=== PATIENT | male | born 1940 | race Caucasian/White ===

== ENCOUNTER 2021-02-05 18:26 | Inpatient (IN) | payer MEDICARE ==
[~2021-02-05] VITALS: Ht 180.3 cm; Wt 96.7 kg
[2021-02-05] MEDS ORDERED: dexameTHASONE 20MG/5ML VIAL (J1100 PER 1MG) IV ONE (19:05)
[2021-02-05] MEDS ORDERED: IPRATROPIUM 0.5MG/ALBUTEROL 2.5MG INH SOL UD 3ML (DUONEB) NEB ONE (19:05)
[2021-02-05] MEDS ORDERED: ACETAMINOPHEN 500 MG TAB PO ONE (19:05)
[2021-02-05 19:29] LABS: BASO % 0.2 % (0.0-1.0); HEMOGLOBIN 15.4 g/dl (13.5-17.5); LYMPH # 0.5 10^3/uL (1.5-5.0); LYMPH % 2.5 % (24.0-44.0); MEAN CORPUSCULAR HEMOGLOBIN 27.5 pg (27.0-33.0); MEAN CORPUSCULAR HGB CONC 32.1 g/dl (32.0-36.5); MEAN CORPUSCULAR VOLUME 85.9 fl (80.0-96.0); MONO # 1.9 10^3/uL (0.0-0.8); MONO % 9.1 % (2.0-8.0); NEUTROPHILS # 18.1 10^3/uL (1.5-8.5); NEUTROPHILS % 87.6 % (36.0-66.0); PLATELET COUNT, AUTOMATED 271 10^3/uL (150-450); RED BLOOD COUNT 5.59 10^6/uL (4.30-6.10); WHITE BLOOD COUNT 20.7 10^3/uL (4.0-10.0)
[2021-02-05] MEDS ORDERED: cefTRIAXone SOD 1 GM in D5W MINI-BAG PLUS 50 ML IV ONE (19:40)
[2021-02-05] MEDS ORDERED: AZITHROMYCIN INJ 500 MG, VIAL MATE ADAPTER 1 EACH in NS 250 ML IV ONE (19:40)
[2021-02-05 19:58] LABS: ALBUMIN 3.2 GM/DL (3.2-5.2); ALT/SGPT 22 U/L (12-78); BILIRUBIN,DIRECT 0.4 MG/DL (0.0-0.2); BILIRUBIN,TOTAL 1.2 MG/DL (0.2-1.0); BLOOD UREA NITROGEN 18 MG/DL (7-18); CALCIUM LEVEL 8.3 MG/DL (8.8-10.2); CARBON DIOXIDE LEVEL 29 MEQ/L (21-32); CHLORIDE LEVEL 101 MEQ/L (98-107); CK-MB VALUE MASS < 1.0 NG/ML (<3.6); CPK CREATINE PHOSPHOKINASE 48 U/L (39-308); CREATININE FOR GFR 1.16 MG/DL (0.70-1.30); GLOMERULAR FILTRATION RATE > 60.0 (>35); GLUCOSE, FASTING 153 MG/DL (70-100); MB/CK RELATIVE INDEX 2.08 (< OR =4); NT-PRO BNP 184 PG/ML (<450); POTASSIUM SERUM 4.2 MEQ/L (3.5-5.1); SODIUM LEVEL 135 MEQ/L (136-145); TOTAL PROTEIN 6.8 GM/DL (6.4-8.2); TROPONIN I < 0.02 NG/ML (< 0.10)
[2021-02-05] MEDS ORDERED: LORA-930 PO (20:24)
[2021-02-05] MEDS ORDERED: IPRA0.00 NEB (20:24)
[2021-02-05] MEDS ORDERED: MONT10TA10 PO (20:24)
[2021-02-05] MEDS ORDERED: SIMV20TA22 PO (20:24)
[2021-02-05] MEDS ORDERED: ALBU8.5H INH (20:24)
[2021-02-05] MEDS ORDERED: COMBAER6 INH (20:24)
[2021-02-05 20:27] LABS: VENOUS BASE EXCESS 0.7 (-2.0-2.0); VENOUS HCO3 25.5 MEQ/L (23.0-27.0); VENOUS O2 SATURATION 92.7 % (60.0-80.0); VENOUS PARTIAL PRESSURE CO2 41.8 mmHg (38.0-50.0); VENOUS PARTIAL PRESSURE O2 63.6 mmHg (30.0-50.0); VENOUS PH 7.404 UNITS (7.330-7.430); VENOUS STANDARD HCO3 24.9 MEQ/L; VENOUS TOTAL CO2 26.8 MEQ/L (24.0-28.0)
[2021-02-05] MEDS ORDERED: HOME MED LIST COMPLETE! XX SCH (20:30)
--- NOTE | 2021-02-05 22:34 | REPVR ---
PROCEDURE INFORMATION: Exam: XR Chest Exam date and time: 02/05/2021 7:21 PM Age: 80 years old Clinical indication: Cough and dyspnea; Additional info: Dyspnea/cough TECHNIQUE: Imaging protocol: XR of the chest. Views: 1 view. COMPARISON: No relevant prior studies available. FINDINGS: Lungs: Minimal atelectasis at bilateral lung bases. Pleural spaces: Unremarkable. No pleural effusion. No pneumothorax. Heart/Mediastinum: Unremarkable. No cardiomegaly. Bones/joints: Unremarkable. IMPRESSION: Minimal atelectasis at bilateral lung bases. Electronically signed by: Tito Gaston On 02/05/2021 22:33:42 PM
[2021-02-05] MEDS ORDERED: SODIUM CHLORIDE 0.9% 1000ML IV STA (23:29)
[2021-02-05] MEDS ORDERED: ALBUTEROL SULFATE 2.5 MG/0.5 ML INH NEB SOLN NEB PRN (23:30)
[2021-02-05] MEDS ORDERED: ACETAMINOPHEN TAB 650MG DOSE (2X325MG) PO PRN (23:30)
[2021-02-05] MEDS ORDERED: MAALOX 30 ML SUSP *UDC PO PRN (23:30)
[2021-02-05] MEDS ORDERED: MOM 30ML SUSPENSION UDC PO PRN (23:30)
--- NOTE | 2021-02-05 23:36 | HPEPDOC ---
[facility] Medical History & Physical Date of Admission Feb 05, 2021 Date of Service: Feb 05, 2021 Attending Physician: JUAN ANTONIO WARD MD History and Physical TIME OF SERVICE: 11:57pm CHIEF COMPLAINT: I couldnt breathe HISTORY OF PRESENT ILLNESS: , an 80 yr old M, presented to the hospital w the chief c/o that he couldnt breathe. His shortness of breath became progressively worse over the last few days despite using his inhalers and supplemental O2 more frequently. He has also had a cough productive of white sputum (that is occurs more frequently than his chronic COPD related cough), fever, headache, chills, & sweating; he denies having chest pain, n/v/d or rash. He has been diagnosed w PNA about 3 or 4 times in the past but feels like his symptoms today are different from his typical symptoms due to PNA bc he doesnt have muscle aches. 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 ALLERGIES: Please see below. HOME MEDICATIONS: Please see below. PHYSICAL EXAMINATION: Vital Signs Date Time Temp Pulse Resp B/P (MAP) Pulse Ox O2 Delivery O2 Flow Rate FiO2 02/05/21 18:27 100.4 124 20 143/74 (97) 90 Nasal Cannula 1.0 GENERAL APPEARANCE: well-nourished and developed/ NAD HEENT: EOMI / MMM&P / NC in place CARDIOVASCULAR: RRR/NMRG / pulse is not bounding / there is no BLE edma LUNGS: he is using accessory muscles / he is able to speak full sentences w/o stopping to take a breath / he coughs occasionally / air entry is equal bilaterally / breath sounds are diminished bilaterally / there is no dullness to percussion ABDOMEN: contour convex MUSCULOSKELETAL: NCAT / SAVITA x 4 extremities INTEGUMENT: he is flushed and diaphoretic NEUROLOGICAL: CN 2-12 grossly intact / speech not dysarthric PSYCHIATRIC: A&O / able to understand and follow all commands LABORATORY DATA: IMAGING: Chest xray IMPRESSION: Minimal atelectasis at bilateral lung bases. MICROBIOLOGY: Respiratory panel negative ASSESSMENT: is an 80 yr old w a hx of COPD & DLP who is admitted for Sepsis of unclear source, and acute COPD. PLAN: 1 Sepsis of unclear source vs SIRS Clinically he appears toxic and has several findings c/w SIRS Plan: admit to pCU / telemetry / Zosyn and vancomycin pending chest CT & pancx results / IVF/ Acetaminophen PRN for fever / target MAP at of least 65 to 70 / f/u Is and Os with target UOP of at least 0.5 ml/kg/H / f/u FSBS w target serum glucose 140-180 while acutely ill 2 Acute COPD Plan: supplemental O2 / continuous pulse oximetry / aspiration precautions / COPD diet / f/u sputum cx / DuoNeb Q6H, Albuterol Q1HP, Prednisone 3 Gilbert Syndrome Isolated hyperbilirubinemia DVT px w Lovenox Dispo: home after at least 2 midnights stay Home Medications Scheduled Loratadine (Loratadine) 10 Mg Tablet, 10 MG PO QHS Montelukast Sodium (Montelukast Sodium) 10 Mg Tablet, 10 MG PO QHS Simvastatin (Simvastatin) 20 Mg Tablet, 20 MG PO QHS Scheduled PRN Albuterol Sulfate (Albuterol Sulfate Hfa) 8.5 Gm Hfa.aer.ad, 2 PUFFS INH QID PRN for SHORTNESS OF BREATH Ipratropium/Albuterol Sulfate (Combivent Respimat 20-100 Mcg) 4 Gm Mist.inhal, 2 PUFFS INH QID PRN for SHORTNESS OF BREATH Ipratropium/Albuterol Sulfate (Iprat-Albut 0.5-3(2.5) mg/3 ml) 3 Ml Ampul.neb, 1 VIAL NEB QID PRN for SHORTNESS OF BREATH Allergies Coded Allergies: No Known Allergies (Unverified , 02/05/21) A-FIB/CHADSVASC A-FIB History Current/History of A-Fib/PAF?: No Current PO Anticoag Therapy: No JUAN ANTONIO WARD MD Feb 05, 2021 23:36
[2021-02-05] MEDS ORDERED: ISOVUE-370 76% 100ML VIAL As Ordered ONE (23:56)
[2021-02-06] MEDS ORDERED: VANCOMYCIN HCL 1,000 MG, VIAL MATE ADAPTER 1 EACH in NS 250 ML IV SCH ×3
[2021-02-06] MEDS: IPRATROPIUM 0.5MG/ALBUTEROL 2.5MG INH SOL UD 3ML (DUONEB) NEB SCH ×5 (01:20→19:33)
--- NOTE | 2021-02-06 02:24 | REPVR ---
PROCEDURE INFORMATION: Exam: CT Chest With Contrast; Diagnostic Exam date and time: 02/05/2021 12:19 AM Age: 80 years old Clinical indication: Pain; Chest pressure; Additional info: Dyspnea with fever TECHNIQUE: Imaging protocol: Diagnostic computed tomography of the chest with contrast. 3D rendering (Not supervised by radiologist): MIP and/or 3D reconstructed images were created by the technologist. Radiation optimization: All CT scans at this facility use at least one of these dose optimization techniques: automated exposure control; mA and/or kV adjustment per patient size (includes targeted exams where dose is matched to clinical indication); or iterative reconstruction. Contrast material: ISO 370; Contrast volume: 75 ml; Contrast route: INTRAVENOUS (IV); COMPARISON: CR PORTABLE CHEST X-RAY 02/05/2021 7:07 PM FINDINGS: Thyroid: Unremarkable. Bronchial tree: There are secretions in the right mainstem bronchus. Lungs: There are mild paraseptal emphysematous changes in the upper lobes. There is patchy consolidation in both lower lobes. No cavitary lesion is noted. 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 No pleural effusion or pneumothorax. Heart: No cardiomegaly. No pericardial effusion. There are coronary artery calcifications. Mediastinal space: No mediastinal mass, fluid collection, or pneumomediastinum. Pulmonary arteries: There is no pulmonary embolism in the main, lobar, or segmental pulmonary arteries. The timing of the contrast bolus was suboptimal for the assessment of the subsegmental pulmonary arteries, which are poorly opacified. Aorta: The thoracic aorta is intact and patent. There is no thoracic aortic aneurysm, pseudoaneurysm, penetrating atherosclerotic ulcer, intramural hematoma, or dissection. There are moderate to severe atherosclerotic calcifications. Great vessels off aortic arch: The brachiocephalic artery, imaged proximal portions of the common carotid arteries, imaged proximal portions of the vertebral arteries, and subclavian arteries are intact. No stenosis or occlusion of these vessels is noted. Lymph nodes: There is a 13 mm enlarged left hilar lymph node and a 12 mm enlarged right hilar lymph node, which may be reactive in nature. Subcentimeter mediastinal lymph nodes are present. Diaphragm: There is eventration of the right hemidiaphragm. Liver: The attenuation of the liver is lower compared to the spleen, which can be seen with fatty liver infiltration. No liver lesion is identified. The contour of the liver is smooth. No hepatomegaly is noted. Gallbladder and bile ducts: No calcified gallstones are noted. No gallbladder wall thickening, pericholecystic fluid, or pericholecystic inflammatory changes are identified. No dilation of the bile ducts is noted. Spleen: There are calcifications along the superior capsule of the spleen. The spleen is enlarged measures 14.1 cm. Adrenal glands: Normal. No adrenal mass is noted. Bones/joints: There is no fracture or dislocation. No suspicious osteolytic or osteoblastic lesion. There are bridging paraspinal osteophytes at multiple contiguous levels in the thoracic spine, which are findings compatible with diffuse idiopathic skeletal hyperostosis. There are degenerative changes in the thoracic spine. Intradiscal calcification is present at several levels. Soft tissues: Unremarkable. No soft tissue fluid collection. IMPRESSION: 1. Patchy airspace consolidation in both lower lobes, which is compatible with pneumonia. 2. 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 3. Mild paraseptal emphysematous changes in the upper lobes. 4. Splenomegaly. Electronically signed by: Jeronimo Blackman On 02/06/2021 02:23:22 AM
[2021-02-06] MEDS ORDERED: VANCOMYCIN HCL 1,000 MG, VIAL MATE ADAPTER 1 EACH in NS 250 ML IV ONE (04:00)
[2021-02-06 06:32] LABS: HEMATOCRIT 44.4 % (42.0-52.0); HEMOGLOBIN 14.2 g/dl (13.5-17.5); MEAN CORPUSCULAR VOLUME 87.4 fl (80.0-96.0); PLATELET COUNT, AUTOMATED 220 10^3/uL (150-450); RED BLOOD COUNT 5.08 10^6/uL (4.30-6.10); WHITE BLOOD COUNT 19.6 10^3/uL (4.0-10.0)
[2021-02-06 07:02] LABS: ALBUMIN 2.5 GM/DL (3.2-5.2); ALT/SGPT 22 U/L (12-78); BILIRUBIN,TOTAL 0.7 MG/DL (0.2-1.0); BLOOD UREA NITROGEN 17 MG/DL (7-18); CALCIUM LEVEL 7.4 MG/DL (8.8-10.2); CARBON DIOXIDE LEVEL 27 MEQ/L (21-32); CHLORIDE LEVEL 109 MEQ/L (98-107); GLOMERULAR FILTRATION RATE > 60.0 (>35); GLUCOSE, FASTING 189 MG/DL (70-100); MAGNESIUM LEVEL 2.2 MG/DL (1.8-2.4); POTASSIUM SERUM 4.3 MEQ/L (3.5-5.1); SODIUM LEVEL 141 MEQ/L (136-145); TOTAL PROTEIN 5.8 GM/DL (6.4-8.2)
[2021-02-06] MEDS: NS 1,000 ML IV SCH ×2 (08:01→18:40)
[2021-02-06] MEDS: ENOXAPARIN 40MG/0.4ML SYRINGE (J1650 PER 10MG) SC SCH (09:00)
[2021-02-06] MEDS: predniSONE 20 MG TAB PO SCH (09:00)
[2021-02-06] MEDS ORDERED: PIPERACILLIN/TAZOBACTAM SOD 4.5 GM in D5W MINI-BAG PLUS 50 ML IV SCH ×3 (09:00)
[2021-02-06] MEDS: MONTELUKAST 10 MG TAB PO SCH ×2 (09:40→20:02)
[2021-02-06] MEDS ORDERED: VANCOMYCIN HCL 750 MG, VIAL MATE ADAPTER 1 EACH in NS 250 ML IV ONE (10:00)
[2021-02-06] MEDS ORDERED: ALBUTEROL 90 MCG/ACT 8GM HFA INHALER INH PRN (12:10)
[2021-02-06 13:30] VITALS: BP 138/74
--- NOTE | 2021-02-06 18:15 | IPNPDOC ---
Subjective Date Seen The patient was seen on 02/06/21. Subjective Chief Complaint/HPI SUBJECTIVE: Patient seen at bedside this morning. Overnight patient had a team of 103.4 deg F. In the room he was on 4 and 1/2 L of oxygen satting at 99%. We decreased his oxygen to 3-1/2 L and he was able to sat still above 95%. We dropped his oxygen down to 2 L he was satting above 90%. During the entire interview patient did not have any acute respiratory distress or use of accessory muscles. Patient denies any chest pain, shortness of breath, nausea, vomiting, diarrhea, abdominal pain, lower extremity swelling he does state that he had one episode of chills last night however that did resolve and has not had any fever or chills since. OBJECTIVE: Vitals: Temp 97.0 deg F, Pulse 76bpm, RR 16, BP 138/74, O2 95% 2.0L NC GENERAL: The patient is a well-developed, well-nourished in no apparent distress. AAOx3 NEURO: No focal neurological deficits HEENT: Head is normocephalic and atraumatic. Extraocular muscles are intact. Pu pils are equal, round, and reactive to light and accommodation. Nares appears normal. Moist mucous membranes. PULM: Mild expiratory wheezing appreciated there is some coarse rales in bilateral lower lobes CARDIO: Normal S1, S2. no significant murmurs, gallops, rubs or clicks. Trace peripheral edema ABDOMEN: Obese, soft, nontender, and nondistended. Normal bowel sounds. No significant organomegaly appreciated. EXTREMITIES: No cyanosis, clubbing, rash, lesions. PSYCH: Appropriate mood and affect Laboratory data: See below Imaging: CXR portable 02/06/21 IMPRESSION: Minimal atelectasis at bilateral lung bases CT chest with contrast 02/06/21 IMPRESSION: 1. Patchy airspace consolidation in both lower lobes, which is compatible with pneumonia. 2. 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 3. Mild paraseptal emphysematous changes in the upper lobes. 4. Splenomegaly. Microbiology: Blood cultures pending Sputum culture pending Respiratory panel negative ASSESSMENT & PLAN: This is an 80-year-old male with a history of COPD on home oxygen (1 L), who presents to [facility] ER with chief complaint of progressive shortness of breath since Saturday and despite use of his rescue inhalers, the shortness of breath did not improve and subsequently presented to the ER for further work-up. In the ER, patient was hypoxic and required supplemental oxygen to saturate above 90%. Patient is also noted to have leukocytosis chest radiograph shows patchy airspace consolidation in both lower lobes suspicious for pneumonia. He was given 1 dose of Rocephin and Zithromax in the ER as well as a 10 mg IV Decadron and a neb treatment and hospitalist team was asked to admit the patient for further management his care. Acute COPD exacerbation He has had some increased cough with increased sputum production for the past week with increased progressive shortness of breath for the past 2 days. Patient is wheezing on auscultation. We will place on prednisone 40mg PO qd We will start DuoNebs 3ml NEB q4h and albuterol sulfate 2 puffs INH q4h prn SOB Continue to monitor his SPO2 and titrate O2 between 80% to 92%. Patient will need follow-up with pulmonary outpatient for inhaler optimization. CAP Radiograph shows findings suspicious for pneumonia patient does have some leukocytosis and a T-max overnight of 103.4. Patient was given a dose of Rocephin and Zithromax in the ER as well as a neb treatment and placed on supplemental oxygen with much improvement of his shortness of breath. He was then admitted to the floor and started on Vanco and Zosyn. MRSA PCR was ordered and not detected. Will DC his vancomycin and Zosyn and placed on Ceftin Zithromax Follow-up on blood culturescurrently pending. Hyperlipidemia Continue with home statin Work related lung injury Patient states that he has had extensive exposure to asbestos and argon. Patient will need to follow-up with his therapeutic recreation specialist outpatient for cessation of his inhalers for COPD as well as scans as necessary. History of Gilbert syndrome Total bilirubin 02/05 19:09 - 1.2(H), 02/06 05:26 - 0.7(NL) Patient will need to follow-up with PCP outpatient DVT prophylaxis: Lovenox CODE STATUS: Full Disposition pending clinical improvement. VS, I&O, 24H, Fishbone Vital Signs/I&O Vital Signs Date Time Temp Pulse Resp B/P (MAP) Pulse Ox O2 Delivery O2 Flow Rate FiO2 10/11/21 13:30 97.0 76 16 138/74 (95) 95 Nasal Cannula 2.0 I&O- Last 24 Hours up to 6 AM 02/06/21 06:00 Intake Total 305 ml Balance 305 ml Laboratory Data 24H LABS Laboratory Tests 2 02/05/21 19:09: Immature Granulocyte % (Auto) 0.6, Neutrophils (%) (Auto) 87.6H, Lymphocytes (%) (Auto) 2.5L, Monocytes (%) (Auto) 9.1H, Eosinophils (%) (Auto) 0.0, Basophils (%) (Auto) 0.2, Neutrophils # (Auto) 18.1H, Lymphocytes # (Auto) 0.5L, Monocytes # (Auto) 1.9H, Eosinophils # (Auto) 0.0, Basophils # (Auto) 0.0, Nucleated Red Blood Cells % (auto) 0.0, Blood Gas Bicarbonate Standard 24.9, Venous Blood pH 7.404, Venous Blood Partial Pressure CO2 41.8, Venous Blood Partial Pressure O2 63.6H, Venous Blood Total Carbon Dioxide 26.8, Venous Blood HCO3 25.5, Venous Blood Oxygen Saturation 92.7H, Venous Blood Base Excess 0.7, Anion Gap 5L, Glomerular Filtration Rate > 60.0, Lactic Acid Level 1.5, Calcium Level 8.3L, Total Bilirubin 1.2H, Direct Bilirubin 0.4H, Aspartate Amino Transf (AST/SGOT) 11, Alanine Aminotransferase (ALT/SGPT) 22, Alkaline Phosphatase 91, Total Creatine Kinase 48, Creatine Kinase MB < 1.0, Creatine Kinase MB Relative Index 2.08, Troponin I < 0.02, AV-Aol-J-Type Natriuretic Peptide 184, Total Protein 6.8, Albumin 3.2, Albumin/Globulin Ratio 0.9 02/06/21 05:26: Nucleated Red Blood Cells % (auto) 0.0, Anion Gap 5L, Glomerular Filtration Rate > 60.0, Calcium Level 7.4L, Total Bilirubin 0.7, Aspartate Amino Transf (AST/SGOT) 12, Alanine Aminotransferase (ALT/SGPT) 22, Alkaline Phosphatase 75, Total Protein 5.8L, Albumin 2.5#L, Albumin/Globulin Ratio 0.8, Urine Color YELLOW, Urine Appearance CLEAR, Urine pH 6.0, Urine Specific [place] 1.036, Urine Protein NEGATIVE, Urine Glucose (UA) 1+H, Urine Ketones TRACEH, Urine Blood NEGATIVE, Urine Nitrite NEGATIVE, Urine Bilirubin NEGATIVE, Urine Urobilinogen 0.2, Urine Leukocyte Esterase NEGATIVE, Urine WBC (Auto) 1, Urine RBC (Auto) 1, Urine Hyaline Casts (Auto) 0, Urine Bacteria (Auto) NEGATIVE, Urine Squamous Epithelial Cells 0, Urine Sperm (Auto) , Magnesium Level 2.2 02/06/21 11:05: Lactic Acid Level 1.7, Procalcitonin 0.32 02/06/21 13:51: Methicillin-Resist S.aureus DNA PCR NOT DETECTED 02/06/21 17:51: Bedside Glucose (Misc Panel) 178H CBC/BMP Laboratory Tests 02/05/21 19:09 02/06/21 05:26 Microbiology Microbiology 02/06/21 Gram Stain, Received Pending 02/06/21 Sputum Culture, Received Pending 02/05/21 Respiratory Virus Panel (PCR) ([facility]) - Final, Complete 02/05/21 Blood Culture, Received Pending 02/05/21 Blood Culture, Received Pending GME ATTESTATION GME ATTESTATION My faculty preceptor for this patient encounter was physically present during the encounter and was fully available. All aspects of the patient interview, examination, medical decision making process, and medical care plan development were reviewed and approved by the faculty preceptor. The faculty preceptor is aware and concurs with the plan as stated in the body of this note and will attest to such by his/her cosignature. Isaías Damon DO Feb 06, 2021 18:15
--- NOTE | 2021-02-06 19:13 | ECGEPIP ---
[facility] - ED Test Date: 2021-02-05 Pat Name: KEELEY HOWELL Department: Room: [place] [address] Gender: Male [employer]igo [employer]er: ED : 1940 Requested By: LAINE RIGGINS Order Number: [id number] Reading MD: Haydee Norris Measurements Intervals [place] Rate: 114 P: 59 CT: 140 QRS: 7 QRSD: 84 T: 46 QT: 306 QTc: 421 Interpretive Statements Sinus tachycardia Nonspecific ST abnormality Delayed R wave progression No prior ECG for comparison Electronically Signed on 02-06-2021 19:12:57 EDT by Haydee Norris
[2021-02-06] MEDS ORDERED: cefTRIAXone SOD 1 GM in D5W MINI-BAG PLUS 50 ML IV SCH (20:00)
[2021-02-06] MEDS ORDERED: AZITHROMYCIN 250MG TABLET PO SCH (21:00)
[2021-02-06 22:00] VITALS: BP 121/68
[2021-02-07 00:28] VITALS: O2SAT 91
[2021-02-07] MEDS: IPRATROPIUM 0.5MG/ALBUTEROL 2.5MG INH SOL UD 3ML (DUONEB) NEB SCH ×4 (00:37→12:28)
[2021-02-07 06:00] VITALS: BP 120/57
[2021-02-07] MEDS ORDERED: PNEUMOCOCCAL VACCINE 0.5ML SYRINGE (PNEUMOVAX 23) IM ONE (09:00)
[2021-02-07] MEDS ORDERED: methylPREDNISolone 125MG 2ML VIAL IV SCH (09:00)
[2021-02-07] MEDS: predniSONE 20 MG TAB PO SCH (09:04)
[2021-02-07 09:05] LABS: BASO % 0.1 % (0.0-1.0); HEMATOCRIT 45.6 % (42.0-52.0); HEMOGLOBIN 14.1 g/dl (13.5-17.5); LYMPH # 0.7 10^3/uL (1.5-5.0); LYMPH % 3.2 % (24.0-44.0); MEAN CORPUSCULAR HEMOGLOBIN 27.2 pg (27.0-33.0); MEAN CORPUSCULAR HGB CONC 30.9 g/dl (32.0-36.5); MONO # 1.2 10^3/uL (0.0-0.8); MONO % 5.4 % (2.0-8.0); NEUTROPHILS # 19.2 10^3/uL (1.5-8.5); NEUTROPHILS % 90.4 % (36.0-66.0); PLATELET COUNT, AUTOMATED 251 10^3/uL (150-450); RED BLOOD COUNT 5.18 10^6/uL (4.30-6.10); WHITE BLOOD COUNT 21.2 10^3/uL (4.0-10.0)
[2021-02-07] MEDS: ENOXAPARIN 40MG/0.4ML SYRINGE (J1650 PER 10MG) SC SCH (09:05)
[2021-02-07 09:26] LABS: BLOOD UREA NITROGEN 18 MG/DL (7-18); CALCIUM LEVEL 8.2 MG/DL (8.8-10.2); CARBON DIOXIDE LEVEL 29 MEQ/L (21-32); CHLORIDE LEVEL 111 MEQ/L (98-107); CREATININE FOR GFR 0.72 MG/DL (0.70-1.30); GLOMERULAR FILTRATION RATE > 60.0 (>35); GLUCOSE, FASTING 155 MG/DL (70-100); SODIUM LEVEL 143 MEQ/L (136-145)
[2021-02-07] MEDS ORDERED: PRED20TA PO (11:01)
[2021-02-07] MEDS ORDERED: DOXY-350 PO (11:01)
--- NOTE | 2021-02-07 11:05 | DS.PDOC ---
Discharge Summary General Date of Admission Feb 05, 2021 at 22:32 Date of Discharge Feb 07, 2021 Discharge Summary PROCEDURES PERFORMED DURING STAY: None ADMITTING DIAGNOSES : Acute on chronic COPD exacerbation Hx of Tobacco dependence Dyslipidemia Seasonal allergies Work related lung injury (asbestos and argon close) DISCHARGE DIAGNOSES: Acute on chronic COPD exacerbation Hx of Tobacco dependence Dyslipidemia Seasonal allergies Work related lung injury (asbestos and argon close) COMPLICATIONS/CHIEF COMPLAINT: Shortness of breath HISTORY OF PRESENT ILLNESS: This is an 80-year-old male with a history of COPD on home oxygen (1 L), who presents to [facility] ER with chief complaint of progressive shortness of breath since Saturday and despite use of his rescue inhalers, the shortness of breath did not improve and subsequently presented to the ER for further work-up. In the ER, patient was hypoxic and required supplemental oxygen to saturate above 90%. Patient is also noted to have leuk ocytosis chest radiograph shows patchy airspace consolidation in both lower lobes suspicious for pneumonia. He was given 1 dose of Rocephin and Zithromax in the ER as well as a 10 mg IV Decadron and a neb treatment and hospitalist team was asked to admit the patient for further management his care. HOSPITAL COURSE: During this hospitalization patient was treated for acute on chronic COPD exacerbation as well as suspected community-acquired pneumonia. Patient initially required 6 L of nasal cannula to sat above 90%. He was given 1 dose of IV Decadron in the ED and upon admission given broad-spectrum antibiotic coverage with Vanco and Zosyn. His antibiotics were stepped down to Rocephin a nd Zithromax after MRSA came back in normal limits and he was started on prednisone 40 mg p.o. daily. Patient was continued on duo nebs with albuterol as rescue as well as nebs as needed. At the time of discharge patient was afebrile and hemodynamically stable and patient is saturating above 92 % on 2 L nasal cannula and centrally at his baseline. Patient instructed to follow-up with his PCP as well as pulmonary physician within 7 days of hospital discharge. He was told that if his symptoms return and/or worsen to report back to the ER. He was instructed to be compliant with his medications (Rocephin and Zithromax) which includes 3 more days of his antibiotics (doxycycline) to complete a total antibiotic course of 5 days as well as a prednisone 40 mg p.o. daily for 3 more days for completion of total 5 days. Patient cannot continue his home inhaler regimen and we will add Spiriva to his regimen. Patient did receive his Pneumovax however declined influenza shot and states that he will get it next week (18 February). Also discussed with patient that he should be using his home oxygenation at least 15 hours a day as he is a chronic COPDer and being on oxygen therapy does improve outcomes in this population. DVT prophylaxis Lovenox CODE STATUS: Full ALLERGIES: Please see below. PHYSICAL EXAMINATION ON DISCHARGE: Vitals (See below) GENERAL: The patient is a well-developed, well-nourished in no apparent distress. AAOx3 NEURO: No focal neurological deficits HEENT: Head is normocephalic and hospital atraumatic. Extraocular muscles are intact. Pupils are equal, round, and reactive to light and accommodation. Nares appears normal. Moist mucous membranes. PULM: Mild wheezing improved with neb treatment. No rhonchi rales appreciated CARDIO: Normal S1, S2. no significant murmurs, gallops, rubs or clicks. No signs of peripheral edema ABDOMEN: Soft, nontender, and nondistended. Normal bowel sounds. No significant organomegaly appreciated. EXTREMITIES: No cyanosis, clubbing, rash, lesions. PSYCH: appropriate mood and affect LABORATORY DATA: Please see below IMAGING: CXR portable 02/06/21 IMPRESSION: Minimal atelectasis at bilateral lung bases CT chest with contrast 02/06/21 IMPRESSION: 1. Patchy airspace consolidation in both lower lobes, which is compatible with pneumonia. 2. 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 3. Mild paraseptal emphysematous changes in the upper lobes. 4. Splenomegaly. DISCHARGE MEDICATIONS: Please see below. ACTIVITY: As tolerated DISCHARGE PLAN: Follow up with PCP and pulmonology within 7 days of hospital discharge Remain compliant with treatment plan and medications Return to the ER if you experience symptom/worsening DISPOSITION: Home DISCHARGE CONDITION: Stable TIME SPENT ON DISCHARGE: 35 minutes Vital Signs/I&Os Vital Signs Date Time Temp Pulse Resp B/P (MAP) Pulse Ox O2 Delivery O2 Flow Rate FiO2 02/07/21 06:00 96.7 79 18 120/57 (78) 94 Nasal Cannula 2.0 I&O- Last 24 Hours up to 6 AM 02/07/21 05:59 Intake Total 4960 ml Output Total 975 ml Balance 3985 ml Laboratory Data Labs 24H Laboratory Tests 2 02/06/21 11:05: Lactic Acid Level 1.7, Procalcitonin 0.32 02/06/21 13:51: Methicillin-Resist S.aureus DNA PCR NOT DETECTED 02/06/21 17:51: Bedside Glucose (Misc Panel) 178H 02/07/21 00:38: Bedside Glucose (Misc Panel) 199H 02/07/21 05:15: Bedside Glucose (Misc Panel) 157H 02/07/21 08:42: Immature Granulocyte % (Auto) 0.9, Neutrophils (%) (Auto) 90.4H, Lymphocytes (%) (Auto) 3.2L, Monocytes (%) (Auto) 5.4, Eosinophils (%) (Auto) 0.0, Basophils (%) (Auto) 0.1, Neutrophils # (Auto) 19.2H, Lymphocytes # (Auto) 0.7L, Monocytes # (Auto) 1.2H, Eosinophils # (Auto) 0.0, Basophils # (Auto) 0.0, Nucleated Red Blood Cells % (auto) 0.0 CBC/BMP Laboratory Tests 02/07/21 08:42 FSBS Laboratory Tests Test 02/06/21 17:51 02/07/21 00:38 02/07/21 05:15 Range/Units Bedside Glucose (Misc Panel) 178 199 157 83-110 MG/DL Microbiology Microbiology 02/06/21 Gram Stain, Received Pending 02/06/21 Sputum Culture, Received Pending 02/05/21 Respiratory Virus Panel (PCR) ([facility]) - Final, Complete 02/05/21 Blood Culture - Preliminary, Resulted No growth after 24 hours . All specim... 02/05/21 Blood Culture - Preliminary, Resulted No growth after 24 hours . All specim... Discharge Medications Scheduled Doxycycline Monohydrate (Doxycycline) 100 Mg Capsule, 100 MG PO BID Loratadine (Loratadine) 10 Mg Tablet, 10 MG PO QHS, (Reported) Montelukast Sodium (Montelukast Sodium) 10 Mg Tablet, 10 MG PO QHS, (Reported) Prednisone (Prednisone) 20 Mg Tablet, 40 MG PO DAILY Simvastatin (Simvastatin) 20 Mg Tablet, 20 MG PO QHS, (Reported) Tiotropium [place] (Spiriva) 18 Mcg Cap.w.dev, 1 CAP INH DAILY Scheduled PRN Albuterol Sulfate (Albuterol Sulfate Hfa) 8.5 Gm Hfa.aer.ad, 2 PUFFS INH QID PRN for SHORTNESS OF BREATH, (Reported) Ipratropium/Albuterol Sulfate (Combivent Respimat 20-100 Mcg) 4 Gm Mist.inhal, 2 PUFFS INH QID PRN for SHORTNESS OF BREATH, (Reported) Ipratropium/Albuterol Sulfate (Iprat-Albut 0.5-3(2.5) mg/3 ml) 3 Ml Ampul.neb, 1 VIAL NEB QID PRN for SHORTNESS OF BREATH, (Reported) Allergies Coded Allergies: No Known Allergies (Unverified , 02/05/21) GME ATTESTATION GME ATTESTATION My faculty preceptor for this patient encounter was physically present during the encounter and was fully available. All aspects of the patient interview, examination, medical decision making process, and medical care plan development were reviewed and approved by the faculty preceptor. The faculty preceptor is aware and concurs with the plan as stated in the body of this note and will attest to such by his/her cosignature. Isaías Damon DO Feb 07, 2021 09:12
[2021-02-07] MEDS ORDERED: SPIR1CAP INH (11:06)
[2021-02-07] MEDS: NS 1,000 ML IV SCH (11:20)
== END 2021-02-07 13:05 | disposition home or self-care (01) | DRG 190 ==
LOC: M ED 18:26 → M ED INP 22:32 → ENRESERV 02-06 08:05 → M MSPAV 02-06 13:25
PROVIDERS: ADMIT Internal Medicine; ATTEND Internal Medicine
DX: J44.1 Chronic obstructive pulmonary disease with (acute) exacerbation (principal); J18.9 Pneumonia, unspecified organism; E80.4 Gilbert syndrome; E78.5 Hyperlipidemia, unspecified; Z79.899 Other long term (current) drug therapy